=== PATIENT | female | born 1995 | race African-American/Black ===

== ENCOUNTER 2016-12-24 15:39 | Emergency (ER) | payer OTHER ==
--- NOTE | ~2016-12-24 | CT4 ---
[facility] A Service [facility] RADIOLOGY TEXT RESULTS PATIENT: FAHAD ARAUZ LOCATION: SED : [birth year] UNIT #: [id number] AGE: [address]: Lui Hughes MD SEX: F ORDER DR: [id number] [place] [id number] E MR#: [id number] Acc #: [id number] NAME: FAHAD ARAUZ : 1995 SEX: F STUDY DATE/TIME: 12/24/2016 17:09 UNIT: SED ROOM: STUDY DESCRIPTION: CT Abd and Pelv Wo Cont Attending Physician: Lui Hughes M.D. Referring Physician: Lui Hughes M.D. Ordering Physician: Lui Hughes M.D. Primary Care Physician: No Primary Care Physician MEDICAL IMAGING REPORT This report is preliminary unless electronic signature is present. EXAM CT abdomen pelvis without contrast INDICATIONS Upper abdominal pain and nausea today. PROCEDURE Unenhanced CT of the abdomen and pelvis. TECHNIQUE This CT exam was performed with one or more of the following radiation dose reduction techniques: automatic exposure control, adjustment of mA and/or kV according to patient size, and iterative reconstruction. COMPARISON STUDIES None FINDINGS Included lung bases clear. Liver spleen kidneys adrenal glands pancreas gallbladder unremarkable unenhanced appearance. Bowel loops are nondilated appendix is normal. Pelvis without contrast. No pelvic mass. No radiodense urinary system calculus or hydronephrosis. No aggressive appearing bone lesion. IMPRESSION No acute findings in the abdomen or pelvis. Dictated by... Alfredito Schaeffer M.D. [facility] A Service of [facility] RADIOLOGY TEXT RESULTS PATIENT: FAHAD ARAUZ LOCATION: SED : [birth year] UNIT #: [id number] AGE: [address]: Lui Hughes MD SEX: F ORDER DR: THIS IS AN ELECTRONICALLY VERIFIED REPORT Alfredito Schaeffer M.D. at 12/25/2016 7:36 AM Paty TD: 12/24/2016 23:21 JOB #: [id number] MEDICAL IMAGING REPORT Page 1 of 1
[~2016-12-24 15:39] MED LIST: NO MEDICATIONS; VOLTAREN75 MG PO
[2016-12-24 16:54] LABS: URINE SOURCE CLEAN CATCH
[2016-12-24 16:55] LABS: BASOPHIL% 0.2 % (0-2.5); EOSINOPHIL# 0.1 X10e3 (0-0.7); HEMATOCRIT 39.4 % (35.0-45.0); HEMOGLOBIN 13.3 gm/dL (12.0-16.0); LYMPHOCYTE# 1.8 X10e3 (1.0-3.5); LYMPHOCYTE% 27.5 % (17.0-45.0); MEAN CELL VOLUME 86.1 FL (83-96); MEAN CORPUSCULAR HGB CONC 33.7 g/dL (30-36); MEAN PLATELET VOLUME 8.9 FL (6.5-11.5); MONOCYTE# 0.5 X10e3 (0-1.0); MONOCYTE% 7.9 % (3.0-12.0); NEUTROPHIL# 4.1 X10e3 (1.5-7.1); NEUTROPHIL% 63.4 % (40-75); PLATELET COUNT 241 X10e3 (140-420); RED BLOOD COUNT 4.57 X10e (3.90-5.30); RED CELL DISTRIBUTION WIDTH 13.7 % (11.0-15.5); WHITE BLOOD COUNT 6.5 X10e3 (4.0-10.5)
[2016-12-24 16:57] LABS: URINE APPEARANCE CLEAR; URINE BILIRUBIN NEG (NEG); URINE BLOOD 3+ (NEG); URINE COLOR YELLOW; URINE GLUCOSE NEG (NORM); URINE LEUKOCYTE ESTERASE NEG (NEG); URINE NITRATE NEG (NEG); URINE PROTEIN NEG (NEG); URINE SPECIFIC GRAVITY 1.025 (1.003-1.035); URINE UROBILINOGEN 0.2 MG/DL (NORM)
[2016-12-24 17:06] LABS: MICRO INDICATED? YES; URINE KETONE 3+ (NEG)
[2016-12-24 17:08] LABS: CULTURE INDICATED? NO; URINE BACTERIA NEG (NEG)
[2016-12-24 17:10] LABS: DIFF IND NO
[2016-12-24 17:14] LABS: ALBUMIN SERUM 4.6 g/dL (3.5-5.0); BILIRUBIN, DIRECT 0.1 mg/dL (0.0-0.2); BILIRUBIN,TOTAL 1.1 mg/dL (0.2-2.0); BUN/CREATININE RATIO 16.66; CALCIUM SERUM 8.9 mg/dL (8.4-10.2); CREATININE SERUM 0.6 mg/dL (0.6-1.4); GLOM FILT RATE Estimated 152.1 mL/min (>60); POTASSIUM 3.2 mmol/L (3.5-5.1); PROTEIN TOTAL SERUM 7.8 g/dL (6.0-8.3)
== END 2016-12-24 18:21 | disposition home or self-care (01) ==
LOC: SED 15:39
PROVIDERS: Emergency Medicine
DX: R10.31 Right lower quadrant pain (principal); R11.0 Nausea
CPT/HCPCS: 36415; 74176; 80048; 80076; 81003; 82150; 83690; 84703; 85025; 96374; 99284; J2270